=== PATIENT | male | born 1975 | race American Indian/Alaskan Native ===

== ENCOUNTER 2016-06-26 12:00 | Emergency (ER) | payer SELFPAY ==
[2016-06-26 12:29] VITALS: BP 141/84
== END 2016-06-26 14:00 | disposition left against medical advice (07) ==
LOC: ED 12:00
DX: L98.9 Disorder of the skin and subcutaneous tissue, unspecified (principal); Z53.21 Procedure and treatment not carried out due to patient leaving prior to being seen by health care provider

== ENCOUNTER 2016-07-15 13:37 | Emergency (ER) | payer SELFPAY ==
[2016-07-15 14:22] VITALS: BP 129/82
--- NOTE | 2016-07-15 15:56 | Emergency Department Report ---
Entered by JOHNNY COWAN, acting as scribe for YASSINE CORTES PA. Chief Complaint: Skin Rash Stated Complaint: EZCEMA FLARING UP/SKIN IRRITATION Time Seen by Provider: 07/15/16 15:17 - HPI History of Present Illness: 40 y/o male with PMHx of eczema, presents to the ED c/o eczema flare up beginning 1.5 years ago. The symptoms are consistent with prior eczema flare ups. He states the symptoms are usually alleviated with steroid shots given in the ED and he has been using hydrocortisone cream and OTC lotion for symptom alleviation. - ROS Review of Systems: Per HPI: Constitutional: Denies chills, fever, diaphoresis, malaise, weakness Eyes: Denies eye pain ENT: Denies ear pain, throat pain, congestion, difficulty swallowing Respiratory: Denies cough, shortness of breath, wheezing Cardiovascular: Denies chest pain, palpitations Endocrine: No symptoms reported GI: Denies abdominal pain, nausea, vomiting, diarrhea Musculoskeletal: Denies back pain, joint swelling, arthralgia, myalgia Skin: positive for dry rash consistent with eczema. Denies lesions, pruritus Neurological: Denies headache, weakness, numbness, paresthesias - Exam Vital Signs: Vital Signs 07/15/16 14:19 Temperature 98.2 F Pulse Rate 89 Respiratory 20 Rate Blood Pressure 129/82 O2 Sat by Pulse 98 Oximetry Physical Exam: General: 40-year-old male in no acute distress. Well-developed, well-nourished. CV: Regular rate and rhythm. No murmurs rubs or gallops. Lungs: Clear to auscultation bilaterally. Skin: Dry scaly rash noted on forehead and upper extremities. No signs of infection. MSE screening note: Focused history and physical exam performed. Due to findings the following was ordered: ED Medical Decision Making - Lab Data Vital Signs 07/15/16 14:19 Temperature 98.2 F Pulse Rate 89 Respiratory 20 Rate Blood Pressure 129/82 O2 Sat by Pulse 98 Oximetry ED Disposition for MSE Disposition: MEDICAL SCREENING EXAM-LEFT Condition: Stable Referrals: PRIMARY CARE,MD [Primary Care Provider] - 3-5 Days This documentation as recorded by the scribe,JOHNNY COWAN,accurately reflects the service I personally performed and the decisions made by ,YASSINE CORTES PA.
== END 2016-07-15 15:57 | disposition left against medical advice (07) ==
LOC: ED 13:37
DX: L30.9 Dermatitis, unspecified (principal); Z53.21 Procedure and treatment not carried out due to patient leaving prior to being seen by health care provider